=== PATIENT | male | born 1975 | race Caucasian/White ===

== ENCOUNTER 2019-12-25 04:49 | Emergency (ER) | payer OTHER ==
[~2019-12-25] VITALS: Ht 180.3 cm; Wt 116.0 kg
[2019-12-25] MEDS ORDERED: ONDANSETRON HCL 4MG/2ML INJ IV STA (05:19)
[2019-12-25] MEDS ORDERED: MORPHINE SULFATE 4 MG/ML CPJ (NOT FOR IM USE) IV STA (05:19)
[2019-12-25] MEDS ORDERED: SODIUM CHLORIDE 0.9% 1,000 ML IV ONE (05:19)
[2019-12-25 06:20] LABS: CHLORIDE 102 mEq/L (98-107)
[2019-12-25 06:23] LABS: BASOPHILS % 0.2 % (0.0-2.0); EOSINOPHILS % 0.6 % (0.0-5.0); LYMPHOCYTES % 23.5 % (20.0-50.0); MEAN CORPUSCULAR VOLUME 85.8 fL (80.0-94.0); MEAN PLATELET VOLUME 8.6 fl (7.4-10.4); MONOCYTES % 5.9 % (2.0-8.0); NEUTROPHILS % 69.8 % (40.0-76.0); PLATELET 265 x1000/uL (130-400); RED BLOOD CELL COUNT 5.02 mill/uL (4.7-6.1); RED CELL DISTRIBUTION WIDTH 13.5 % (11.6-14.6)
[2019-12-25] MEDS ORDERED: KETOROLAC 30MG/ML VIAL IV ONE (06:30)
[2019-12-25] MEDS ORDERED: IOHEXOL-300 100 ML BOTTLE ONE (07:06)
[2019-12-25 08:58] VITALS: BP 130/94
== END 2019-12-25 09:06 | disposition home or self-care (01) ==
LOC: ER 05:51
DX: M79.18 Myalgia, other site (principal); E11.9 Type 2 diabetes mellitus without complications; I10 Essential (primary) hypertension; F17.200 Nicotine dependence, unspecified, uncomplicated; V49.49XA Driver injured in collision with other motor vehicles in traffic accident, initial encounter; Y93.89 Activity, other specified; Y92.410 Unspecified street and highway as the place of occurrence of the external cause
CPT/HCPCS: 36415; 71045; 73552; 73590; 74177; 80053; 82962; 85025; 86850; 86900; 86901; 93005; 96374; 96375; 99285; J1885; J2270; J2405; J7030; Q9967